=== PATIENT | male | born 1950 | race Caucasian/White ===

== ENCOUNTER → 2017-01-05 | Outpatient (CLI) | payer MEDICARE, OTHER | LOC: GMAL 10:34 | PROVIDERS: ATTEND Family Medicine | DX: D51.9 Vitamin B12 deficiency anemia, unspecified (principal); E29.1 Testicular hypofunction; E55.9 Vitamin D deficiency, unspecified ==

== ENCOUNTER → 2017-01-06 | Outpatient (CLI) | payer MEDICARE, OTHER ==
--- NOTE | 2017-01-07 09:49 | MRI ---
EXAM DESCRIPTION: Lumbar Spine w/o Contrast CLINICAL HISTORY: LOW BACK PAIN COMPARISON: None. TECHNIQUE: Multiplanar, multisequence MRI of the lumbar spine was performed without contrast. FINDINGS: GENERAL Lumbar vertebral bodies show normal height without compression deformity. There is straightening of the normal lumbar lordosis with 3 to 4 mm anterolisthesis of L5 on S1. Heterogeneous patchy areas of bone marrow edema on T1 and T2-weighted sequences is seen around the disc spaces from L2 through S1 most prominently from L2 through L4. There are also areas of low signal on T1 and T2-weighted sequences around the endplates anteriorly from L2 through L5. Anterior disc bulging and marginal endplate osteophytes are most significant from L2 through L5. Conus medullaris terminates at T12-L1 and is unremarkable. The visualized intra-abdominal retroperitoneal structures show no acute findings. L1-2 No significant findings. L2-3 Desiccation of the disc space with severe disc space narrowing and probable vacuum disc is seen. There is 4 mm posterior circumferential ridging disc osteophyte complex with mild facet hypertrophic and degenerative changes including ligamentum flavum thickening. Mild spinal canal stenosis is seen. The thecal sac measures 7 mm AP centrally. Mild bilateral foraminal encroachment is seen. L3-4 Disc desiccation and severe disc space narrowing is noted with 3 to 4 mm posterior circumferential ridging osteophyte of the inferior endplate of L3 flattening the ventral surface of the thecal sac. Moderate facet hypertrophic and degenerative changes with ligamentum flavum thickening contributes to moderate to severe spinal canal stenosis with decreased CSF signal from around the nerve roots in the thecal sac measuring 4.5 mm AP by 12 mm transverse. There is moderate right and mild left foraminal encroachment seen. L4-5 Desiccation of the disc space with severe disc space narrowing is seen. 3 mm posterior circumferential ridging disc osteophyte complex is seen. Moderate bilateral facet hypertrophic and degenerative changes with ligamentum flavum thickening is noted. There is mild to moderate spinal canal stenosis. The thecal sac measures 9 mm AP by 11 mm transverse. Left lateral recess encroachment on the descending L5 nerve root is seen. There is moderate right and mild left foraminal encroachment. L5-S1 Disc desiccation and moderate diffuse disc space narrowing is seen. A 3 mm broad-based disc bulge flattens the ventral surface of the thecal sac. Mild bilateral facet hypertrophic and degenerative changes are seen with small right facet joint effusion. No spinal canal stenosis or lateral recess encroachment is seen. There is moderate bilateral foraminal encroachment. IMPRESSION: Severe disc degenerative changes from L2 through L5 with moderate disc degenerative changes at L5-S1. Multilevel facet arthropathy from L2 through S1 is seen. There is multifactorial at least moderate to severe L3-4, mild to moderate L4-5, and mild L2-3 spinal canal stenosis. Multilevel foraminal encroachment of the lumbar spine is seen from L2 through S1 as described level by level above with multilevel lateral recess encroachment. Patchy areas of bone marrow edema around the endplates of the disc spaces from L2 through S1 is seen most significantly from L2 through L4. This most likely represents Modic type I degenerative endplate signal changes rather than discitis osteomyelitis. No obvious fluid in the disc space or bony destructive changes are seen. Electronically signed by: Ashish Brito MD 01/07/2017 9:47 AM CDT
== END ==
LOC: MRI 14:00
PROVIDERS: ATTEND Family Medicine
DX: M51.37 Other intervertebral disc degeneration, lumbosacral region (principal)

== ENCOUNTER → 2017-11-11 | Outpatient (CLI) | payer MEDICARE, OTHER | LOC: GMAL 10:31 | PROVIDERS: ATTEND Family Medicine | DX: E29.1 Testicular hypofunction (principal) ==

== ENCOUNTER → 2018-03-11 | Outpatient (CLI) | payer MEDICARE, OTHER | LOC: GMAL 12:38 | PROVIDERS: ATTEND Family Medicine | DX: E29.1 Testicular hypofunction (principal); Z12.5 Encounter for screening for malignant neoplasm of prostate | CPT/HCPCS: 84402; 84403; G0103 ==

== ENCOUNTER → 2020-07-26 | Outpatient (CLI) | payer MEDICARE, OTHER | LOC: GMAL 13:23 | PROVIDERS: ATTEND Family Medicine | DX: R53.83 Other fatigue (principal); E53.8 Deficiency of other specified B group vitamins; D64.9 Anemia, unspecified ==

== ENCOUNTER → 2020-07-30 | Outpatient (CLI) | payer MEDICARE, OTHER ==
--- NOTE | 2020-07-30 12:22 | CT ---
EXAM DESCRIPTION: Abdomen/Pelvis w/wo Contrast CLINICAL HISTORY: 70 years Male, ABN LIVER FUNCTION TECHNIQUE: This exam was performed according to our departmental dose-optimization program, which includes automated exposure control, adjustment of the mA and/or kV according to patient size and/or use of iterative reconstruction technique. COMPARISON: None at time of initial interpretation. FINDINGS: Visualized lung bases are grossly unremarkable. Numerous hypoenhancing liver lesions. Reference posterior right hepatic lobe lesion measures 1.6 cm series 4 image 27. Reference left hepatic lobe lesion measures 1.3 cm series 4 image 18. No biliary dilatation. The portal vein is patent. The gallbladder is not distended. The spleen and adrenal glands are unremarkable. Pancreatic body mass measuring 5.3 x 3.0 cm. There is upstream pancreatic duct dilatation and parenchymal atrophy. Symmetric renal parenchymal enhancement. No hydronephrosis. No urolithiasis. The bladder is decompressed. Enteric contrast was administered. Scattered colonic diverticula without focal inflammatory change. No evidence of bowel obstruction. Normal appendix. Trace ascites. Peritoneal carcinomatosis. A reference right lower quadrant omental nodule measures 1.7 cm series 4 image 62. Reference midline anterior omental nodule measures 1.3 cm series 4 image 37. No retroperitoneal or pelvic adenopathy. No free air. No drainable fluid collection. Normal caliber abdominal aorta. Diffuse atherosclerotic disease. No acute or suspicious osseous abnormality. Scattered degenerative changes present. IMPRESSION: 1. Pancreatic body mass measuring 5.3 cm worrisome for primary malignancy. 2. Multifocal hepatic metastatic disease. 3. Peritoneal carcinomatosis with trace ascites. Electronically signed by: Lazaro Hays MD 07/30/2020 12:20 PM [facility]
== END ==
LOC: CT 09:22
PROVIDERS: ATTEND Family Medicine
DX: C78.7 Secondary malignant neoplasm of liver and intrahepatic bile duct (principal); C48.2 Malignant neoplasm of peritoneum, unspecified; R18.8 Other ascites; K86.9 Disease of pancreas, unspecified

== ENCOUNTER 2020-08-06 13:50 | Observation (INO) | payer MEDICARE, OTHER ==
--- NOTE | 2020-08-06 14:08 | ED.PDOC ---
History of Present Illness - General Time Seen by Provider: 08/06/20 13:51 Source: patient, RN notes reviewed, Vital Signs reviewed, old records Exam Limitations: no limitations - History of Present Illness Initial Comments: 70 yo male with recent diagnosis metastatic pancreatic cancer and Parkinson comes in with dyspnea x 1 month. Has been getting progressivley worse especially the past few days so came in for evaluation. Feels like it all started once he started his Parkinson medication. No chest pain. worse with activity. no hx of lung disease. Has had two covid test which were negative in the past week. no cough. Allergies/Adverse Reactions: Allergies Statins Allergy (Verified 08/06/20 14:20) Review of Systems - Review of Systems Constitutional: States: malaise. Denies: chills, fever EENTM: Denies: blurred vision, throat pain Respiratory: States: cough, short of breath Cardiology: Denies: chest pain, edema, palpitations, syncope Gastrointestinal/Abdominal: Denies: abdominal pain, diarrhea, nausea, vomiting Genitourinary: Denies: frequency, hematuria Musculoskeletal: Denies: back pain, muscle pain Skin: Denies: rash Neurological: Denies: seizure Endocrine: Denies: unexplained weight gain, unexplained weight loss Hematologic/Lymphatic: Denies: blood clots, easy bleeding, easy bruising Past Medical History (General) - Patient Medical History Hx Seizures: No Hx Stroke: No Hx Dementia: No Hx Asthma: No Hx of COPD: No Hx Cardiac Disorders: No Hx Pacemaker: No Hx Hypertension: Yes Hx Diabetes: Yes Hx Gastroesophageal Reflux: No Hx Renal Disease: No Hx Cancer: Yes Hx MRSA: No Hx Other PMH: No Family Medical History - Family History Mother Family History: Unknown Physical Exam - Physical Exam General Appearance: Alert, Comfortable, No apparent distress, Well Developed, Well Groomed, Well Hydrated, Well Nourished Eyes, Ears, Nose, Throat Exam: PERRL/EOMI, normal ENT inspection, TMs normal Neck: non-tender, full range of motion, supple, normal inspection Respiratory: chest non-tender, lungs clear, normal breath sounds, no respiratory distress, no accessory muscle use Cardiovascular/Chest: normal peripheral pulses, regular rate, rhythm, no gallop, no JVD, no murmur Peripheral Pulses: radial,right: 2+, radial,left: 2+, dorsalis pedis,right: 2+, dorsalis pedis,left: 2+ Gastrointestinal/Abdominal: normal bowel sounds, non tender, soft, no organomegaly, no pulsatile mass Rectal Exam: deferred Extremity: normal range of motion, non-tender, normal inspection, no calf tenderness, normal capillary refill 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 given 1 L NS. Declines anything for pain at this time. Concern for PE, given his ca and his shortness of breath. Cr elevated, baseline normal per Dr. Delaney. Called several facilities in [place] but accepting no transfers at this time. [place] with no VQ scan. Will admit for IV hydration, and possible CTA in morning. WIll give heparin Subq. The data reviewed when caring for this patient included: nurse notes, prior records, etc. The history and assessments from nurses notes were reviewed and considered, and the patient's home medication list was also reviewed and considered. My assessment and the results of testing completed here in the ED were discussed with the patient/family. All questions were answered, and they express understanding of my assessment and the plan. Ruthy Head, DO #[id number] Laboratory Results WBC 44.0 K/mm3 (4.8-10.8) H* 08/06/20 14:15 RBC 3.48 M/mm3 (4.70-6.10) L 08/06/20 14:15 Hgb 9.8 gm/dL (14.0-18.0) L 08/06/20 14:15 Hct 29.8 % (42.0-52.0) L 08/06/20 14:15 MCV 85.7 fl (80.0-94.0) 08/06/20 14:15 MCH 28.1 pg (27.0-31.0) 08/06/20 14:15 MCHC 32.8 g/dL (33.0-37.0) L 08/06/20 14:15 RDW 14.1 % (11.5-14.5) 08/06/20 14:15 Plt Count 473 K/mm3 (130-400) H 08/06/20 14:15 MPV 8.7 fl (7.40-10.4) 08/06/20 14:15 Absolute Neuts (auto) Not Reportable 08/06/20 14:15 Absolute Lymphs (auto) Not Reportable 08/06/20 14:15 Absolute Monos (auto) Not Reportable 08/06/20 14:15 Absolute Eos (auto) Not Reportable 08/06/20 14:15 Neutrophils % Not Reportable 08/06/20 14:15 Neutrophils % (Manual) 94.0 % (42.0-78.0) H 08/06/20 14:15 Lymphocytes % Not Reportable 08/06/20 14:15 Lymphocytes % (Manual) 1.0 % 08/06/20 14:15 Monocytes % Not Reportable 08/06/20 14:15 Monocytes % (Manual) 4.0 % 08/06/20 14:15 Eosinophils % Not Reportable 08/06/20 14:15 Basophils % Not Reportable 08/06/20 14:15 Band Neutrophils 1.0 % (0-2) 08/06/20 14:15 Hypochromia 1+ 08/06/20 14:15 Platelet Estimate Increased (NORMAL) 08/06/20 14:15 PT 12.9 SECONDS (9.0-10.9) H 08/06/20 14:15 INR 1.30 (0.9-1.15) H 08/06/20 14:15 PTT (SP) 29.0 SECONDS (21.8-31.6) 08/06/20 14:15 D-Dimer, Quantitative > 5000.0 ng/ml (131-400) H* 08/06/20 14:15 Sodium 130 mmol/L (135-145) L 08/06/20 14:15 Potassium 3.4 mmol/L (3.6-5.0) L 08/06/20 14:15 Chloride 88 mmol/L (101-111) L 08/06/20 14:15 Carbon Dioxide 27 mmol/L (21-31) 08/06/20 14:15 Anion Gap 18.4 (12-18) H 08/06/20 14:15 BUN 65 mg/dL (7-18) H 08/06/20 14:15 Creatinine 1.76 mg/dL (0.6-1.3) H 08/06/20 14:15 BUN/Creatinine Ratio 36.9 (10-20) H 08/06/20 14:15 Random Glucose 234 mg/dL (70-105) H 08/06/20 14:15 Serum Osmolality 287.0 mOsm/L (275-295) 08/06/20 14:15 Calcium 8.3 mg/dL (8.4-10.2) L 08/06/20 14:15 Total Bilirubin 2.2 mg/dL (0.2-1.0) H* 08/06/20 14:15 AST 60 IU/L (10-42) H 08/06/20 14:15 ALT 61 IU/L (10-60) H 08/06/20 14:15 Alkaline Phosphatase 529 IU/L (42-121) H 08/06/20 14:15 Troponin I 0.06 ng/mL (0.01-0.05) H 08/06/20 14:15 B-Natriuretic Peptide 91.9 pg/ml (0-100) 08/06/20 14:15 Serum Total Protein 6.8 gm/dL (6.4-8.2) 08/06/20 14:15 Albumin 2.5 g/dl (3.2-5.5) L 08/06/20 14:15 Globulin 4.3 gm/dL (2.3-3.5) H 08/06/20 14:15 Albumin/Globulin Ratio 0.6 (1.1-1.9) L 08/06/20 14:15 Departure - Departure Clinical Impression: MYRTLE (acute kidney injury) ICD-10 Supporting Text: metasatic cancer leukocytosis dyspnea Disposition: Admit Patient Diet: diabetic diet Activity: ambulate only with walker Referrals: Dez Delaney III, MD [Primary Care Provider] - 1-2 Weeks Decision To Admit - Decistion To Admit Decision to Admit Reason: Medical Nature Decision to Admit Date: 08/06/20 Decision to Admit Time: 15:58
--- NOTE | 2020-08-06 16:02 | CT ---
EXAMS DESCRIPTION: Chest w/o Contrast (accession [id number]), CT Abdoment/Pelvis w/o Contrast (accession [id number]) CLINICAL HISTORY: 70 years, Male, short of breath COMPARISON: Previous CT abdomen and pelvis July 30, 2020 TECHNIQUE: Thin-section noncontrast axial CT images are obtained through the chest, abdomen and pelvis according to our protocol. Reconstructed MPR images are created and reviewed as well. FINDINGS: CT chest Lungs: No consolidating pulmonary infiltrate or groundglass infiltrate. Linear scarring or discoid atelectasis in the lung bases, right more than left. No worrisome pulmonary mass or nodule. Calcified granuloma in the left lower lobe. Mediastinum: Lymph nodes are normal in size. Normal vascular contours. Heart size is normal with no pericardial effusion. Moderate coronary calcification. Chest wall/axilla: No mass or adenopathy. Lower neck/supraclavicular: No mass or adenopathy. CT abdomen Right hemidiaphragm is elevated. Multiple low densities in the liver consistent with diffuse hepatic metastatic disease. This was seen on the previous study as well. Mass in the region of the body of the pancreas may be primary pancreatic neoplasm measuring approximately 2.7 x 5.5 cm. No atrophy of the pancreatic tail however or pancreatic ductal dilatation which would be most unusual for pancreatic carcinoma. Other possibilities would include peripancreatic mass or adenopathy or islets cell tumor of the pancreas. Further evaluation with endoscopic sonography might be considered, and this may provide a route for biopsy. 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 Gallbladder appears somewhat distended. No calcified stones in the gallbladder lumen. Normal adrenal glands. Kidneys appear normal with no stones or hydronephrosis. No renal mass. Fluid around the spleen may be malignant ascites. Previous study showed nodularity of the anterior abdominal fat consistent with omental metastatic disease. Largest omental metastasis near the level of the umbilicus measuring 1.6 x 2 cm (axial image 64, series 3). Small amount of fluid in the paracolic gutters with moderate amount of fluid in the pelvis worrisome for malignant ascites. The amount of fluid appears mildly increased compared to the previous study. Retroaortic left renal vein. Ectatic infrarenal abdominal aorta with multiple calcified layering material thrombus measuring 2.4 cm. Small amount of ascites around the inferior right lobe of the liver. CT PELVIS: Pelvic bowel loops are unremarkable. Moderate amount of free fluid in the upper pelvis may be malignant ascites. Bladder and distal ureters are unremarkable. Prominent prostate 4.1 cm in transverse dimension. Normal seminal vesicles. No stones in the distal ureters or bladder. There is a mass in the region of the rectosigmoid junction which may represent primary neoplasm measuring approximately 5 cm in length. Thickness of the rectal wall measures up to 1.7 cm. This was inapparent on the previous study due to luminal collapse. Extensive diverticulosis of the sigmoid colon. Additional area of mild wall thickening is seen in the mid to distal sigmoid colon Francies axial image 73 and 74, series 3). Correlate with proctosigmoidoscopic findings with biopsy if indicated. Coronal and sagittal reformatted images confirm the findings. Advanced degenerative changes of the lumbar disks. No bony destructive lesion. On the coronal images, prominent lymph nodes around the pancreatic body mass. One measures 1.1 cm and another measures 0.9 cm. IMPRESSION: Mass in the region of the body the pancreas with differential considerations discussed above. Multiple liver lesions consistent with extensive hepatic metastatic disease. Malignant ascites with omental metastatic disease. This exam was performed according to our departmental dose-optimization program, which includes automated exposure control, adjustment of the mA and/or kV according to patient size and/or use of iterative reconstruction technique. Total DLP equals 1512.92 mGycm. Electronically signed by: Keith Chris MD 08/06/2020 4:00 PM [employer]ATOR
[2020-08-06] MEDS ORDERED: SODIUM CHLORIDE 0.9% 1000ML 1,000 ML IVS ONE (16:10)
[2020-08-06] MEDS ORDERED: HEPARIN SODIUM (PORCINE) 5,000 U/ML VIAL IV ONE (17:49)
[2020-08-06] MEDS ORDERED: ONDANSETRON INJ 4 MG/2 ML VIAL IV PRN (21:10)
[2020-08-06] MEDS ORDERED: SODIUM CHLORIDE 0.9% (FLUSH) 10 ML SYG IV PRN (21:10)
[2020-08-06] MEDS ORDERED: LEVALBUTEROL NEBS 1.25 MG/3 ML VIAL NEB PRN (21:10)
[2020-08-06] MEDS ORDERED: DEXTROSE 50% 25 GM/50 ML SYG IV PRN (21:18)
[2020-08-06] MEDS ORDERED: GLUCAGON INJ 1 MG VIAL SUBCU PRN (21:18)
[2020-08-06] MEDS ORDERED: HYDROcodone 5MG/APAP 325MG 1 EA TAB PO PRN (21:21)
[2020-08-06] MEDS ORDERED: IV SET AND CAP CHANGE INJ INJ SCH (21:30)
[2020-08-06] MEDS: KCL 20 MEQ/NS 1,000 ML IVS PRN (22:36)
[2020-08-06] MEDS: MORPHINE ER 15 MG TAB PO SCH (23:42)
[2020-08-07] MEDS: HEPARIN SODIUM (PORCINE) 5,000 U/ML VIAL SUBCU SCH ×3 (01:52→17:13)
[2020-08-07] MEDS: MORPHINE ER 15 MG TAB PO SCH ×3 (06:03→17:13)
[2020-08-07] MEDS ORDERED: PANTOPRAZOLE SODIUM IV 40 MG VIAL IV SCH (06:30)
[2020-08-07] MEDS: INSULIN LISPRO 100 UNITS/ML PEN SUBCU SCH ×3 (07:46→18:04)
[2020-08-07] MEDS ORDERED: LEVALBUTEROL NEBS 1.25 MG/3 ML VIAL INH SCH (08:00)
[2020-08-07] MEDS: KCL 20 MEQ/NS 1,000 ML IVS PRN (08:52)
[2020-08-07] MEDS ORDERED: SODIUM CHLORIDE 0.9% (FLUSH) 10 ML SYG IV SCH (09:00)
[2020-08-07] MEDS ORDERED: PROCHLORPERAZINE MALEATE 10 MG TAB PO SCH (09:00)
[2020-08-07] MEDS ORDERED: ASPIRIN (CHEWABLE) 81 MG TAB PO SCH (09:00)
[2020-08-07] MEDS ORDERED: NON-FORMULARY MEDICATION 1 EA MIS (Losartan Potassium [Losartan Potassium] 50 MG) PO SCH (09:00)
[2020-08-07] MEDS ORDERED: LOSARTAN POTASSIUM 25 MG TAB ONE (09:25)
[2020-08-07] MEDS ORDERED: ACETAMINOPHEN 325 MG TAB PO ONE (11:01)
[2020-08-07] MEDS ORDERED: FUROSEMIDE INJ 40 MG/4 ML VIAL IV ONE (11:01)
[2020-08-07] MEDS ORDERED: diphenhydrAMINE HCL 50 MG/ML VIAL IV ONE (11:01)
[2020-08-07] MEDS ORDERED: SODIUM CHLORIDE 0.9% 500ML 500 ML IVS SCH (11:30)
[2020-08-07] MEDS ORDERED: SODIUM CHLORIDE 0.9% 250ML 250 ML ONE (13:33)
--- NOTE | 2020-08-07 13:54 | CT ---
EXAM DESCRIPTION: CTA Chest: Computed Tomography. CLINICAL HISTORY: elev d-dimer COMPARISON: CT chest without IV contrast August 06, 2020 TECHNIQUE: Spiral-axial scans at 2.5 x 2.5 mm intervals through the pulmonary arteries and chest after bolus infusion of IV contrast. Lung algorithm 1.25-mm axial reconstructions. Coronal and sagittal 2.0 Mm reconstructions. 10.0 mm PE oblique 3-D reformatted images. No adverse reactions. Total Exam DLP: 809 mGy-cm. This exam was performed according to our departmental CT dose-optimization program which includes automated exposure control, adjustment of the mA and/or kV according to patient size and/or use of iterative reconstruction technique; to reduce radiation dose to as low as reasonably achievable (ALARA). FINDINGS: Pulmonary arteries: Contrast seen in the pulmonary arterial system from the main pulmonary artery to the bilateral proximal subsegmental pulmonary artery branches with bilateral filling defects in the lobar and segmental arteries. No embolus seen in the left upper lobe pulmonary artery and branches. Heart and other great vessels: Atherosclerotic calcifications of the aorta with no dissection or stenosis. Minimal calcification in several brachiocephalic vessels and coronary arteries. Lungs and airways: Stable subpleural partially calcified nodule abutting the pleura in the posterior superior segment left lower lobe. Stable pleural parenchymal scarring right middle lobe. Stable bilateral lower lobe pleural parenchymal scarring, versus platelike atelectasis, more on the right. Pleura: Bilateral thickening. No acute process. Mediastinum and dayna: scatter artifact from dense PA contrast. Normal sized lymph nodes. Soft tissue neck, chest wall, and axillae: Stable subclavian and axillary nodes. Upper abdomen: Ascites left upper quadrant around the spleen. Multiple low-density lesions throughout all segments of the liver. Osseous structures: No lytic or blastic lesions. Arthrosis shoulder clavicle and sternal joints. Multiple levels of thoracic spondylosis. IMPRESSION: 1. Bilateral acute pulmonary embolus. Sparing of the left upper lobe pulmonary artery branches. 2. Stable appearance of the heart and other major vessels, the mediastinum and hilum, lung parenchyma, and osseous structures compared to the prior study on August 06. 3. Stable appearance of multiple low-density lesions of heterogeneous size in the liver, most likely related to metastatic disease. Left upper quadrant abdominal ascites. CRITICAL COMMUNICATION: The critical value was communicated directly by Dr. Hernández via phone call, with [facility] nurse on the Medical-Surgical unit, at approximately 1330 hours, on August 07, 2020 Electronically signed by: Agusto Hernández MD 08/07/2020 1:53 PM [facility]
[2020-08-07] MEDS ORDERED: IRON SUCROSE INJ 200 MG in SODIUM CHLORIDE 0.9% 250ML 250 ML IV ONE (14:00)
[2020-08-07 17:30] VITALS: O2SAT 97
[2020-08-07 17:31] VITALS: BP 143/70; TEMP 98
[2020-08-07] MEDS ORDERED: LEVALBUTEROL NEBS 1.25 MG/3 ML VIAL NEB SCH (20:00)
[2020-08-07] MEDS ORDERED: LOSARTAN POTASSIUM 100 MG TAB PO SCH (21:00)
[2020-08-08] MEDS ORDERED: ENOXAPARIN SODIUM 30 MG/0.3 ML SYG SUBCU SCH (21:00)
--- NOTE | 2020-08-12 08:42 | SSS ---
SUPERVISING PHYSICIAN: Nehemias Whiteside MD DATE OF ADMISSION: 08/06/20 DATE OF DISCHARGE: 08/07/20 DISCHARGE DIAGNOSIS: 1. Bilateral pulmonary emboli. 2. Recent diagnosis of pancreatic cancer. 3. Acute renal failure. 4. Symptomatic iron deficiency anemia with shortness of breath and recent serum iron levels of 15. 5. Hypertension. 6. Lumbar spinal stenosis. 7. History of testicular cancer in 1978. 8. Diabetes mellitus, type 2. HISTORY OF PRESENT ILLNESS: This is a 70-year-old male patient who presented to the Emergency Room with shortness of breath that had been going on for 3 to 4 weeks. It had progressively worsened to the point that he had to come to the Emergency Room. He has a recent diagnosis, actually last week, of metastatic pancreatic cancer. He also stated he had some dark, tarry stools. In the Emergency Room, his initial vital signs showed temperature 96.9, heart rate 98, blood pressure 149/69, respiratory rate 15, O2 saturation 97%. His lab studies showed WBC 44,000, hemoglobin 9.8, hematocrit 29.8. He had a left shift on his differential. D-dimer was greater than 5,000, PT 12.9, INR 1.3, PTT 29. Sodium 130, potassium 3.4, chloride 88, BUN 54, creatinine 1.76. Glucose 234, calcium 8.3, total bilirubin 2.2, AST 60, ALT 61, alkaline phosphatase 529, troponin 0.06. Urinalysis was within normal limits. COVID swab was negative. His abdomen and pelvis CT and chest CT shows mass in the region of the body of the pancreas with differential consideration as discussed in the report, multiple liver lesions consistent with extensive hepatic metastatic disease, malignant ascites with omental metastatic disease. The were unable to do CTA of the chest to rule out PE due to his elevated creatinine and the patient was admitted to the hospital for gentle hydration and to followup with CTA of the chest. He was also given heparin 5000U sq every 8 hours. PAST MEDICAL HISTORY: 1. Hypertension. 2. Lumbar spinal stenosis. 3. Testicular cancer in 1978. PAST SURGICAL HISTORY: 1. Testicular surgery. OUTPATIENT MEDICATIONS: Per the EMR. ALLERGIES: STATINS. SOCIAL HISTORY: He is . He lives in [place]. There is no history of tobacco or illicit drug use. He drinks approximately 1 drink daily. REVIEW OF SYSTEMS: GENERAL: Positive for fatigue. Negative for fever or weight changes, although he has lost weight over the previous year. HEENT: Negative for sinus symptoms, ear pain, vision changes or sore throat. RESPIRATORY: Positive for coughing and shortness of breath. Negative for wheezing. CARDIAC: Negative for chest pain, palpitations or tachycardia. GASTROINTESTINAL: Positive for black, tarry stools. Negative for nausea, vomiting, diarrhea, constipation. GENITOURINARY: Negative for hematuria, dysuria or polyuria. SKIN: Negative for lesions or rashes. NEUROLOGIC: Negative for headache or seizures. PHYSICAL EXAMINATION: VITAL SIGNS: Temperature 98.4, heart rate 85, blood pressure 123/74, respiratory rate 17, O2 saturation 95% on room air. GENERAL: This is a 70-year-old, tall, slender male who is in no acute distress. HEENT: Normocephalic, atraumatic. Pupils are equal and reactive. Oral mucous membranes are very male. Sclerae pale. NECK: Supple with full range of motion. RESPIRATORY: Essentially clear to auscultation bilaterally. He is tachypneic and is visibly short of breath with any exertion. CARDIOVASCULAR: Regular rate and rhythm. GASTROINTESTINAL: Abdomen is soft, nondistended, nontender. Bowel sounds are positive. EXTREMITIES: No cyanosis, clubbing or edema. NEUROLOGIC: Awake, alert and oriented times three. Cranial nerves II-XII are grossly intact as tested. LABORATORY: Followup lab shows WBCs 46,500, hemoglobin 8.5, hematocrit 25.9. Sodium 131, potassium 3.4, chloride 93, BUN 53, creatinine 1.37. RADIOLOGY: CTA of the chest shows 1) Bilateral acute pulmonary embolus. 2) Stable appearance of the heart and other major vessels. 3) Stable appearance of multiple low density lesions of heterogeneous size in the liver, most likely related to metastatic disease, left upper quadrant abdominal ascites. The remainder of the exam as per the CTA report. HOSPITAL COURSE: The patient was admitted to the hospital. He was gently hydrated overnight and was given heparin subcutaneously. After gentle hydration, 1 unit of packed red blood cells was also ordered to be transfused due to his symptomatic anemia. He was hydrated enough to obtain the CTA which found the pulmonary emboli. He was also guaiac-positive on his stool. Due to the nature of his recent diagnosis of metastatic pancreatic disease as well as his obvious upper GI bleed and pulmonary embolism with significant risk due to the pulmonary emboli, it was felt the patient should be transferred to a facility for an IVC filter. I spoke with his merchandise shopper and he said he would be unable to do the procedure. I contacted [facility] in the [facility] area were called and they did not have any beds available. [facility] was also called and they did not have any beds available. [facility] in [place] was called. They had a physician, Dr. Raya, who would place his IVC filter. Dr. Sheffield, oncologist, would be available for consult as well as Dr. Gregory for GI consult. His transfer was explained to his as well as his family. Initially, they were quite upset that he was going to [place], but due to the nature of his clinical presentation as well as the urgent need for an IVC filter, he will be transferred to [place] for that procedure. DISCHARGE PLAN: The patient will be discharged in stable condition to [facility] in [place]. Copies of his laboratory reports and radiology reports will be sent with the patient. He will be transported via ambulance. He has a followup appointment with his PCP, Dr. Dez Delaney, on 08/12/22, at 3:30 PM. He is to go prior to his appointment for lab including CBC. DISCHARGE MEDICATIONS: 1. Pepcid. 2. Zofran. 3. Morphine. 4. Metformin. 5. Losartan. 6. Hydrocodone. 7. HCTZ/triamterene. 8. Ezetimibe. 9. Aspirin. #[id number] [facility]
== END 2020-08-07 17:55 | disposition short-term general hospital (02) ==
LOC: ER 13:50 → MS 20:57
PROVIDERS: ADMIT Nurse Practitioner Acute Care; ATTEND Nurse Practitioner Acute Care
DX: I26.99 Other pulmonary embolism without acute cor pulmonale (principal); C25.1 Malignant neoplasm of body of pancreas; N17.9 Acute kidney failure, unspecified; D50.9 Iron deficiency anemia, unspecified; I10 Essential (primary) hypertension; M48.061 Spinal stenosis, lumbar region without neurogenic claudication; E11.65 Type 2 diabetes mellitus with hyperglycemia; C78.7 Secondary malignant neoplasm of liver and intrahepatic bile duct; C78.6 Secondary malignant neoplasm of retroperitoneum and peritoneum; R18.0 Malignant ascites; R19.5 Other fecal abnormalities; Z20.822 Contact with and (suspected) exposure to COVID-19; Z79.84 Long term (current) use of oral hypoglycemic drugs; Z79.891 Long term (current) use of opiate analgesic; Z79.82 Long term (current) use of aspirin; Z79.899 Other long term (current) drug therapy; Z88.8 Allergy status to other drugs, medicaments and biological substances; Z85.47 Personal history of malignant neoplasm of testis
CPT/HCPCS: 96366 ×2; 96365; 96375 ×2; 96372; J1200; J1940; J1644 ×4; J7030; J7050; Q0164; J3480 ×2; J1815; J7614; 85379; 80048; 80053 ×2; 82948 ×3; 36415 ×5; 82746; 81001; 85025 ×2; 82728; 83735; 85730; 85610; 82607; 84484; 83880; 36416 ×4; 71250; 71275; 74176; P9016; 86922; 86900; 86901; 86850; 36430; 94640; 94760 ×2; 99285; 93005; G0378; 87635